=== PATIENT | male | born 1950 | race Caucasian/White ===

== ENCOUNTER 2021-05-17 19:37 | Inpatient (IN) | payer OTHER ==
[~2021-05-17] VITALS: Ht 188 cm; Wt 70.5 kg
[2021-05-17 20:51] LABS: HEMATOCRIT 46.4 % (42.0-52.0); HEMOGLOBIN 15.8 g/dl (13.5-18.0); MEAN CELL VOLUME 85 fl (80.0-100.0); MEAN CORPUSCULAR HEMOGLOBIN 29 pg (27.0-31.0); MEAN CORPUSCULAR HGB CONC 34 g/dl (33.0-37.0); MEAN PLATELET VOLUME 10.1 fl (7.4-10.4); PLATELET COUNT 274 K/mm3 (130-400); RED BLOOD COUNT 5.48 M/mm3 (4.20-5.60); REDCELL DISTRIBUTION WIDTH-CV 13.1 % (11.5-14.5)
[2021-05-17 21:04] LABS: ALBUMIN 4.5 gm/dL (3.4-4.8); BILIRUBIN,TOTAL 1.4 mg/dL (0.2-1.2); C-REACTIVE PROTEIN 0.9 mg/dL (0.00-0.50); CALCIUM 10.4 mg/dL (8.4-10.2); CREATININE, serum 1.93 mg/dL (0.72-1.25); POTASSIUM 4.5 mmol/L (3.5-4.5); TOTAL PROTEIN 7.7 gm/dL (6.2-8.1)
[2021-05-17 21:14] LABS: BAND 1 % (0-10); LYMPHOCYTE 7 % (20.0-51.0); NEUTROPHILS 81 % (42.0-75.2); PLATELET ESTIMATE NORMAL (NORMAL)
[2021-05-17 23:35] VITALS: BP 162/85; PULSE 90; TEMP 99.7
--- NOTE | 2021-05-17 23:35 | NUR ---
Pt rec'd to room 342 from ED per cart, transferred to bed, alert and oriented, NG placed in left nare in ED, patent and secure. placed to LIS, draining dark green drainage. IV lock in place in LAC, patent and secure. Dr Tello notified per phone of pt's arrival to floor, orders rec'd and implemented.
[2021-05-18 04:08] VITALS: BP 149/80; PULSE 87; TEMP 99.3
[2021-05-18 06:25] LABS: BASO % 0.2 % (0.0-2.0); EOS % 0.1 % (0-4.0); GRAN # 7.3 (1.4-6.5); GRAN % 80.3 % (42.2-75.2); HEMATOCRIT 44.1 % (42.0-52.0); LYMPH # 0.6 (1.2-3.4); LYMPH % 6.2 % (20.0-51.0); MEAN CELL VOLUME 85 fl (80.0-100.0); MEAN CORPUSCULAR HEMOGLOBIN 29 pg (27.0-31.0); MEAN CORPUSCULAR HGB CONC 34 g/dl (33.0-37.0); MEAN PLATELET VOLUME 10.9 fl (7.4-10.4); MONO # 1.2 (0.1-0.6); PLATELET COUNT 225 K/mm3 (130-400); RED BLOOD COUNT 5.22 M/mm3 (4.20-5.60); REDCELL DISTRIBUTION WIDTH-CV 13.2 % (11.5-14.5)
[2021-05-18 06:42] LABS: ALBUMIN 3.9 gm/dL (3.4-4.8); BILIRUBIN,TOTAL 1.3 mg/dL (0.2-1.2); CALCIUM 9.9 mg/dL (8.4-10.2); CREATININE, serum 1.43 mg/dL (0.72-1.25); TOTAL PROTEIN 6.9 gm/dL (6.2-8.1)
[2021-05-18 07:55] VITALS: BP 152/80; PULSE 86; TEMP 99.2
--- NOTE | 2021-05-18 08:00 | NUR ---
PATIENT IS A&O. VSS. DENIES ABD PAIN OR NAUSEA. PATIENT ONLY C/O INTRACTABLE HICCUPS THAT HE HAS HAD SINCE BEFORE ADMISSION. PATIENT CONFIRMED HE HAS NEVER HAD AN ISSUE WITH HICCUPS IN THE PAST. NOTIFIED PROVIDER, SEE NEW ORDERS. NG TO LIS. CHANGE NG CONTAINER, NOTED 150CC OF DARK GREEN GASTIC DRAINAGE. HYPO ACTIVE BOWL SOUNDS X4 QUADS. ABD IS SLIGHTLY DISTENDED BUT SOFT. NOT PASSING FLATUS. LAST KNOWN BM WAS 05/14/21. USES URINAL. IV FLUIDS INFUSING INTO LEFT AC IV VIA PUMP. NPO WITH SIPS & CHIPS ONLY. HEAD TO TOE ASSESSMENT COMPLETE. STUDENT NURSE WORKING WITH PATIENT TODAY, SEE CHARTING. NO OTHER NEEDS AT THIS TIME. CALL LIGHT IN REACH.
--- NOTE | 2021-05-18 09:27 | NUR ---
KIRBY met with the patient to discuss discharge plan. The patient lives in [place] with his son, Tristian, and [id number], Francie (ph#[phone]). He reports independence with ADLs an does not have any DME. The patient does not have a PCP and he was not interested in getting set up with one at this time. He was interested in getting a list of [place] providers. KIRBY provided him with that list. The patient receives his medications from [facility] and he reports no difficulties obtaining his meds. The patient does not have a DPOA-HC and he was not interested in completing one at this time. He states that he is and has two children: Tristian and Sarah. The patient plans to return home with his son and [id number] upon discharge. No additional needs at this time. *Discharge plan: home with family*
--- NOTE | 2021-05-18 10:40 | NUR ---
Initial visit; Patient thanked Immigration Case Manager for keeping him in her prayers and offering God's blessings. Immigration Case Manager will follow up while patient is here.
[2021-05-18 11:09] VITALS: BP 112/64; PULSE 105; TEMP 97.3
[2021-05-18 15:54] VITALS: BP 123/86; PULSE 109; TEMP 97.8
[2021-05-18 19:47] VITALS: BP 140/78; PULSE 95; TEMP 97.8
--- NOTE | 2021-05-18 22:23 | NUR ---
ALERT AND OX4. DENIES SOA, CHEST PAIN OR DIZZY. NO NAUSEA. BROWN OUTPT TO IN CANNISTER. NG TO LIS. SETTING UPRIGHT. HAS HICCUPS. IV FLUIDS INFUSING PER ORDER. RESCANNING AND POSSIBLE SURGURY FOR SBO TOMORROW. ICE CHIPS FOR COMFORT. POC DISCUSSED. CALL LIGHT WI REACH. NEEDS ARE MET.
[2021-05-18 22:35] VITALS: BP 153/76; PULSE 94; TEMP 97.8
[2021-05-19 03:01] VITALS: BP 147/81; PULSE 86; TEMP 98.5
--- NOTE | 2021-05-19 05:44 | NUR ---
Rested through the night without incident. Needs met. Call light wi reach. Cannister changed once overnight. Needs met.
[2021-05-19 06:50] LABS: HEMATOCRIT 43.2 % (42.0-52.0); MEAN CELL VOLUME 89 fl (80.0-100.0); MEAN CORPUSCULAR HEMOGLOBIN 29 pg (27.0-31.0); MEAN CORPUSCULAR HGB CONC 32 g/dl (33.0-37.0); PLATELET COUNT 192 K/mm3 (130-400); RED BLOOD COUNT 4.88 M/mm3 (4.20-5.60)
[2021-05-19 07:13] LABS: ALBUMIN 3.3 gm/dL (3.4-4.8); BILIRUBIN,TOTAL 0.9 mg/dL (0.2-1.2); CALCIUM 9.1 mg/dL (8.4-10.2); CREATININE, serum 1.2 mg/dL (0.72-1.25); POTASSIUM 4.4 mmol/L (3.5-4.5); TOTAL PROTEIN 6.2 gm/dL (6.2-8.1)
[2021-05-19 07:45] VITALS: BP 160/83; PULSE 82; TEMP 98.7
[2021-05-19 08:14] LABS: BAND 32 % (0-10); LYMPHOCYTE 17 % (20.0-51.0); NEUTROPHILS 40 % (42.0-75.2); PLATELET ESTIMATE NORMAL (NORMAL)
[2021-05-19 10:20] VITALS: BP 159/87; PULSE 85; TEMP 98.2
--- NOTE | 2021-05-19 10:20 | NUR ---
PATIENT IS A&O. VSS. DENIES PAIN OR NAUSEA. PATIENT STILL STRUGGLING WITH THE HICCUPS BUT FOUND A LITTLE RELIEF FOR APPROX 30 MIN AFTER SNEEZING SEVERAL TIMES. IT STOPPED THE DIAPHRAM SPASMS FOR A LITTLE WHILE. NG TO LIS. NOTED 300CC OF YELLOWISH-GREEN GASTRIC DRAINAGE. NG CLAMP COMING OFF, APPLIED NEW CLAMP TO NOSE. ABDD IS DISTENDED, SOFT AND WITH HYPO BOWL SOUNDS. NOT PASSING GAS YET. NPO WITH SIPS & CHIPS. USING BEDSIDE URINAL. PATIENT ASSISTED INTO BEDSIDE CHAIR WITH STAND BY ASSIST. HEAD TO TOE ASSESSMENT COMPLETE, SEE CHARTING. STUDENT NURSE WORKING WITH PATIENT TODAY AND ASSISTING PATIENT TO GET CLEANED UP AND LINENS CHANGED. NO OTHER NEEDS AT THIS TIME. CALL LIGHT IN REACH.
--- NOTE | 2021-05-19 10:50 | NUR ---
ADVANCED PATIENT'S NG FROM 70CM TO 80CM PER . UPON ENTERING ROOM, STUDENT NURSE & PATIENT REPORTS HE HAS PASSED GAS FOR THE FIRST TIME. WILL CONTINUE TO MONITOR. CURRENT NG OUTPT FOR THE SHIFT IS NOW 650CC TOTAL.
--- NOTE | 2021-05-19 13:46 | NUR ---
PATIENT REPORTS HE HAS NOW PASSED A SMALL AMOUNT OF FLATUS THREE TIMES TODAY.
--- NOTE | 2021-05-19 15:15 | NUR ---
Report from CLARA Ventrua. Patient sitting up in bed, NG tube LIS, patient tolerating well. No further needs expressed. Call light within reach
[2021-05-19 15:25] VITALS: BP 163/82; PULSE 95; TEMP 98
--- NOTE | 2021-05-19 17:57 | NUR ---
Patient sitting up in bed, A&Ox3. VSS IV CDI, fluids infusing. Denies pain and discomfort. NG LIS, tolerating well, green output. Patient has ice chips at the bedside, tolerating well. No further needs expressed. Call light within reach.
[2021-05-19 19:28] VITALS: BP 150/80; PULSE 79; TEMP 97.9
[2021-05-19 23:49] VITALS: BP 142/80; PULSE 68; TEMP 98
[2021-05-20] VITALS (13 sets, daily range): BP systolic 143–183; BP diastolic 72–96; PULSE 80–97; TEMP 97.5–99.4
--- NOTE | 2021-05-20 00:22 | NUR ---
ALERT AND ORIENTATED X4. NG TUBE TO LIS, CANNISTER CHANGED. DENIES SOA, CHEST PAIN OR DIZZY. RESCAN IN AM AND POSSIBLE SURGERY TOMORROW. GUT REST FOR NOW. ICE CHIPS ONLY. RA. IV FLUIDS TO LT AC INFUSING PER ORDER. SCD ON VTE. CALL LIGHT WI REACH. NEEDS MET.
--- NOTE | 2021-05-20 01:34 | NUR ---
PT SON SKY CALLS FROM [facility]- UPDATED ON PT STATUS AND RESCAN IN AM. WANTS TO BE CALLED EITHER WAY AND UPDATED, ASKED FOR DOCTOR TO CALL IF POSSIBLE. TOOK NUMBER DOWN AND WILL PASS ON TO DAY SHIFT NURSE.
--- NOTE | 2021-05-20 05:46 | NUR ---
RESTED THROUGH THE NIGHT WITHOUT INCIDENT. CECI CONLEY CHANGED THIS AM. NEEDS MET.
[2021-05-20 07:47] LABS: BASO % 0.6 % (0.0-2.0); EOS # 0.1 K/mm3 (0.0-0.7); EOS % 2.4 % (0-4.0); GRAN # 3.7 K/mm3 (1.4-6.5); GRAN % 74.6 % (42.2-75.2); HEMATOCRIT 45.2 % (42.0-52.0); HEMOGLOBIN 14.5 g/dl (13.5-18.0); LYMPH # 0.5 K/mm3 (1.2-3.4); LYMPH % 10.2 % (20.0-51.0); MEAN CELL VOLUME 90 fl (80.0-100.0); MEAN CORPUSCULAR HEMOGLOBIN 29 pg (27.0-31.0); MEAN CORPUSCULAR HGB CONC 32 g/dl (33.0-37.0); MEAN PLATELET VOLUME 10.5 fl (7.4-10.4); MONO # 0.6 K/mm3 (0.1-0.6); MONO % 11.4 % (1.7-9.3); PLATELET COUNT 199 K/mm3 (130-400); RED BLOOD COUNT 5.05 M/mm3 (4.20-5.60); REDCELL DISTRIBUTION WIDTH-CV 12.9 % (11.5-14.5)
--- NOTE | 2021-05-20 08:00 | NUR ---
PATIENT IS A&O. VSS. DENIES PAIN OR NAUSEA. PATIENT STILL SUFFERING FROM INTERMITTENT HICCUPS. NG TO LIS WITH 350CC OF LIGHT GREEN GASTIC DRAINAGE NOTED. ABD IS DISTENDED, SOFT, AND WITH HYPO ACTIVE BOWL SOUNDS. PATIENT REPORTS PASSING SOME FLATUS. NPO WITH SIPS & CHIPS. PATIENT HAS A REPEAT SCAN ORDERED FOR TODAY. PATIENT MAY REQUIRE SURGICAL INTERVENTION. HEAD TO TOE ASSESSMENT COMPLETE. STUDENT NURSE WORKING WITH PATIENT TODAY, SEE CHARTING. NO OTHER NEEDS AT THIS TIME. CALL LIGHT IN REACH.
[2021-05-20 08:02] LABS: CALCIUM 9.2 mg/dL (8.4-10.2); CREATININE, serum 0.93 mg/dL (0.72-1.25); POTASSIUM 3.8 mmol/L (3.5-4.5)
--- NOTE | 2021-05-20 09:00 | NUR ---
CALLED RADIOLOGY ABOUT SCAN ORDERED BY SURGERY.
--- NOTE | 2021-05-20 11:13 | NUR ---
CALLED RADIOLOGY TO FOLLOW UP ON SCAN THAT WAS ORDERED BY AT 0600. RADIOLOGY TO COME DO SCAN SHORTLY
--- NOTE | 2021-05-20 11:52 | NUR ---
SW staffed with the patient's RN and asked for PT/OT to be ordered.
--- NOTE | 2021-05-20 12:15 | NUR ---
DR.SAVILLE KAUR. PATIENT SCHEDULED FOR SURGERY TODAY AT 1600
--- NOTE | 2021-05-20 13:08 | NUR ---
Pt had a decent day. IV in left AC shows no signs of phlebitis or infiltration. NG tube is secure at the nose and is LIS, drainage is brown. Voiding regularly into a urinal. Had a repeat CXR and will have surgery tonight. Pt states pain is a 0/10 but the hiccups are uncomfortable. Not resting well. Lung sounds are clear, bowel sounds audible, and heart rhythm and rate regular.
--- NOTE | 2021-05-20 15:41 | NUR ---
PATIENT GOING D0WN TO OR VIA BED. CONSENT ON CHART. FLUIDS HANGING VIA GRAVITY. PRE-OPS GIVEN. PATIENT OFF FLOOR
--- NOTE | 2021-05-20 18:10 | NUR ---
PATIENT BACK IN ROOM POST OP. VSS. PATIENT RESTING COMFORTABLY. NG CLAMPED. CONCHE OPERATOR TAKING OVER.
--- NOTE | 2021-05-20 18:57 | NUR ---
RECEIVED CHANGE OF SHIFT REPORT FROM DAY SHIFT NURSE. NG CLAMPED. IV FLUIDS INFUSING WITH NO PROBELMS. DENIES NAUSEA AT THIS TIME. OBSERVED PATIENT C/O HICCUPS POST OP AT THIS TIME.
--- NOTE | 2021-05-20 19:14 | NUR ---
DENIES CHEST PAIN/SOA/NAUSEA AT THIS TIME. DENIES URGE TO VOID AT THIS TIME. SCD ON, IV FLUIDS INFUSING WITH NO PROBLEMS AT THIS TIME.
--- NOTE | 2021-05-20 19:25 | NUR ---
OBSERVED BP READING ELEVATED WITH PATIENT ATTEMPTING TO EAT, MOVING EXTREMITY WITH BP CUFF.
--- NOTE | 2021-05-20 19:39 | NUR ---
NG HARVEY AT [address] TO L NOSTRIL. SIPING ON CLEAR LIQUIDS WITH NO REPORT PROBLEMS AT THIS TIME.
--- NOTE | 2021-05-20 19:55 | NUR ---
DENIES NAUSEA/BLOATING AT THIS TIME. NG CONTINUES TO BE CLAMPED, WITH PATIENT HAVING HICCUPS STILL POST OP. DENIES URGE TO VOID. IVF INFUSING WITH NO PROBLEMS.
--- NOTE | 2021-05-20 21:55 | NUR ---
TOLERATING ORAL INTAKE AT THIS TIME. DENIES ABD PAIN/NAUSEA/CHEST PAIN/SOA. REFUSED SCHEDULED TYLENOL AND REPORTS DOES NOT WANT TO TAKE SCHEDULED IBUPROFEN "I DON'T HURT".
--- NOTE | 2021-05-20 23:21 | NUR ---
NG RESIDUAL CHECKED AT 4 ML
--- NOTE | 2021-05-21 02:11 | NUR ---
PATIENT SLEEPING, DOES NOT WAKE WHEN ROOM IS ENTERED BY NURSE ON ROUNDS. BREATHING EVEN AND NONLABORED. CALL LIGHT WITHIN REACH.
[2021-05-21 04:16] VITALS: BP 151/83; PULSE 84; TEMP 99.2
--- NOTE | 2021-05-21 05:15 | NUR ---
NG RESIDUAL MEASURED AT 10 ML. CONTINUES TO HAVE INTERMITTENT HICCUPS. TOLERATING ORAL INTAKE OF CLEAR LIQUIDS. DENIES NAUSEA/BLOATING AT THIS TIME.
--- NOTE | 2021-05-21 05:21 | NUR ---
REQUESTED AND GIVEN TYLENOL AT THIS TIME.
[2021-05-21 06:37] LABS: BASO % 0.4 % (0.0-2.0); EOS % 0.6 % (0-4.0); GRAN # 5.6 K/mm3 (1.4-6.5); GRAN % 76.4 % (42.2-75.2); HEMOGLOBIN 12.8 g/dl (13.5-18.0); LYMPH # 0.6 K/mm3 (1.2-3.4); LYMPH % 7.6 % (20.0-51.0); MEAN CELL VOLUME 86 fl (80.0-100.0); MEAN CORPUSCULAR HEMOGLOBIN 29 pg (27.0-31.0); MEAN CORPUSCULAR HGB CONC 34 g/dl (33.0-37.0); MEAN PLATELET VOLUME 10.8 fl (7.4-10.4); MONO % 13.8 % (1.7-9.3); PLATELET COUNT 213 K/mm3 (130-400); RED BLOOD COUNT 4.43 M/mm3 (4.20-5.60); REDCELL DISTRIBUTION WIDTH-CV 12.5 % (11.5-14.5)
[2021-05-21 06:58] LABS: CALCIUM 8.5 mg/dL (8.4-10.2); CREATININE, serum 0.87 mg/dL (0.72-1.25); POTASSIUM 4.1 mmol/L (3.5-4.5)
--- NOTE | 2021-05-21 07:26 | NUR ---
CHANGE OF SHIFT REPORT GIVEN TO DAY SHIFT NURSESARITA RN WITH STUDENT NURSE PRESENT.
[2021-05-21 07:32] VITALS: BP 167/99; PULSE 82; TEMP 98.5
--- NOTE | 2021-05-21 08:00 | NUR ---
PATIENT IS A&O. VSS. DENIES PAIN OR NAUSEA. PATIENT STILL C/O INTERMITTENT HICCUPS. NG CLAMPED AND WITH LOW Q6H RESIDUALS. NEXT RESIDUAL CHECK AT 1100. ABD IS SLIGHTLY DISTENDED, SOFT AND WITH HYPO BOWL SOUNDS. NOT PASSING GAS YET. PATIENT UP IN BEDSIDE CHAIR. CLEAR LIQUID BREAKFAST TRAY ORDERED. PATIENT TOLERATING CLEARS WELL. LEFT AC IV TO INT. VOIDING SUFFICENT AMOUNTS. HEAD TO TOE ASSESSMENT COMPLETE. STUDENT NURSE WORKING WITH PATIENT, SEE CHARTING. NO OTHER NEEDS AT THIS TIME. CALL LIGHT IN REACH.
--- NOTE | 2021-05-21 09:50 | NUR ---
PATIENT AMBULATING IN HALLWAYS AND TOLERATING ACTIVITY WELL.
--- NOTE | 2021-05-21 10:53 | NUR ---
PT/OT recommend home with family. SW met with the patient to follow up and review d/c plan. The patient was sitting up in his chair. The patient reports that he is doing alright, but just wishes that he could get rid of his hiccups. The patient states that he is getting around well and still plans on returning home with his family upon discharge. He had no questions or concerns for SW. No additional needs at this time. *Discharge plan: home with family*
--- NOTE | 2021-05-21 11:30 | NUR ---
AT BEDSIDE, SEE NEW ORDERS.
[2021-05-21 12:00] VITALS: BP 161/94; PULSE 76; TEMP 97.7
--- NOTE | 2021-05-21 13:08 | NUR ---
75ml of gastric contents was aspirated from NG tube. NG tube removed and suppository was given per orders. Pt reported bowel movment at approximately 1200. Pt. ambulates in the howell frequntly. Denies pain and refuses pain medication. Sitting up in chair waiting for lunch.
[2021-05-21 15:43] VITALS: BP 177/87; PULSE 86; TEMP 97.9
--- NOTE | 2021-05-21 16:30 | NUR ---
PATIENT HAS HAD TWO SMALL BM'S AND ONE LARGE LOOSE BM.
[2021-05-21 20:32] VITALS: BP 161/89; PULSE 87; TEMP 98.6
--- NOTE | 2021-05-21 21:18 | NUR ---
PT IN BED, IS ALERT AND ORIENTED X4. HAS BEEN IN HALLWAY WALKING INDEPENDENTLY. HAVING LOOSE STOOLS. ABD SOFT, LAP SITES X3. SL TO LEFT AC, TAKING FULL LIQUIDS WITHOUT N/V. DENIES PAIN AND REFUSES ES TYLENOL.
[2021-05-22 00:13] VITALS: BP 153/78; PULSE 82; TEMP 98.3
--- NOTE | 2021-05-22 04:09 | NUR ---
PT REFUSING SCHEDULED PAIN MEDS, STATES "I DON'T NEED ANY".
[2021-05-22 04:17] VITALS: BP 144/80; PULSE 85; TEMP 98.4
[2021-05-22 07:08] VITALS: BP 146/79; PULSE 80; TEMP 98.1
--- NOTE | 2021-05-22 12:02 | NUR ---
Patient is discharging home. He did not want the tylenol or his lovenox injection before discharge. Discharge instructions disucussed with patient. No questions verbalized. INT discontinued. Explained to call Monday for follow up appointment in one week. Explained that he has no prescriptions ordered. Patient verbalized understanding. Patient is packing up his belongings. Copies of discharge instructions given to patient. Geraldine LIZAMA will be walking patient out once he is dressed.
== END 2021-05-22 12:23 | disposition home or self-care (01) | DRG 337 ==
LOC: COL.ER 19:37 → SURG 21:51
PROVIDERS: Family Medicine; ADMIT Surgery
PROC: 0DN84ZZ Release Small Intestine, Percutaneous Endoscopic Approach (ICD-10-PCS; principal; 2021-05-20 16:00)
DX: K56.609 Unspecified intestinal obstruction, unspecified as to partial versus complete obstruction (principal); K44.9 Diaphragmatic hernia without obstruction or gangrene; R06.6 Hiccough
CPT/HCPCS: J0330; J0690; J1650; J2405; J2704; J3010; J3230; J3480; J7120

== ENCOUNTER 2021-06-25 06:55 | Day surgery (SDC) | payer MEDICARE, OTHER ==
[~2021-06-25] VITALS: Ht 188 cm; Wt 68.2 kg
[2021-06-25 07:23] VITALS: BP 130/65; PULSE 99; TEMP 97.3
[2021-06-25] MEDS ORDERED: ONE-A-DAY ESSE1 EACH PO (07:23)
[2021-06-25] MEDS ORDERED: NORCO 325 MG-51 TAB PO (09:05)
[2021-06-25 11:00] VITALS: BP 138/77; PULSE 77; TEMP 97.9
--- NOTE | 2021-06-25 11:00 | NUR ---
Patient arrives to [facility] via cart, accompanied by FILE CLERK Bren. He is sitting up in bed, alert and oriented. PIV to TKO. Monitoring is applied -VSS and WNL on room air. He denies any pain or nausea. He has three surgical incisions, covered with bandaids. Bandaids are all clean/dry/intact. Abdomen is soft, flat, tender. He is offered and receives water and applesauce. Call light in reach.
[2021-06-25 11:15] VITALS: BP 127/71; PULSE 79
--- NOTE | 2021-06-25 11:15 | NUR ---
Patient is resting comfortably in his room. VSS On room air. Denies any pain, nausea, or need. He has drank water and ate applesauce. He is tolerating PO well.
[2021-06-25 11:30] VITALS: BP 126/67; PULSE 66
--- NOTE | 2021-06-25 11:30 | NUR ---
VSS on room air. Patients left incision has a scant amount of new bloody drainage that is already dry to the skin. This is cleansed with gauze with saline. No active bleeding or drainage is noted. A new bandaid is placed.
--- NOTE | 2021-06-25 11:40 | NUR ---
Patient ambulates to the restroom, voids, and returns to room.
--- NOTE | 2021-06-25 12:01 | NUR ---
Patient has met discharge criteria. Discharge instructions are discussed. He denies any questions and verbalizes understanding. PIV is removed with catheter intact and hemostasis achieved. He is changing to his clothing independently and will notify staff when his ride has arrived.
--- NOTE | 2021-06-25 12:20 | NUR ---
Patient requests to utilize a cab service as his ride home. He is escorted to the exit via wheelchair. [employer] picks the patient up to take him home at 1220.
== END 2021-06-25 12:20 | disposition home or self-care (01) ==
LOC: SDCO 06:55
DX: K40.90 Unilateral inguinal hernia, without obstruction or gangrene, not specified as recurrent (principal); K56.609 Unspecified intestinal obstruction, unspecified as to partial versus complete obstruction; Z79.899 Other long term (current) drug therapy; Z87.19 Personal history of other diseases of the digestive system
CPT/HCPCS: C1781; J0690; J1100; J1885; J2405; J2704; J3010; J7120